=== PATIENT | female | born 1995 | race Hispanic/Latino ===

== ENCOUNTER 2019-12-02 17:24 | Emergency (ER) | payer OTHER, SELFPAY ==
[2019-12-04 17:06] LABS: SARS-CoV-2 MS2 Positive; SARS-CoV-2 N Gene Positive; SARS-CoV-2 S Gene Negative; SARS-CoV-2 orf1ab Negative
== END 2019-12-02 20:03 | disposition home or self-care (01) ==
LOC: ERS 17:24
DX: R50.9 Fever, unspecified (principal); Z20.828 Contact with and (suspected) exposure to other viral communicable diseases
CPT/HCPCS: 87635; 99283; U0003

== ENCOUNTER 2020-04-13 07:34 | Outpatient (CLI) | payer BC ==
--- NOTE | 2020-04-13 08:22 | ULT ---
TRANSABDOMINAL AND TRANSVAGINAL PELVIC ULTRASOUND: INDICATION: History of abnormal uterine bleeding in a 25-year-old female. COMPARISON: None. TECHNIQUE: Olivares scale, color Doppler, with spectral Doppler images were obtained of the pelvis via a transabdomi nal and transvaginal approach. FINDINGS: The uterus measures 7.6 x 5.2 x 4.4 cm for a total uterine volume of 91 cc. The endometrial stripe m easured 5 mm, which is within normal limits for a premenopausal female. The right ovary measured 3.1 x 2.9 x 2.8 cm. The left ovary measured 3.6 x 2.2 x 1.6 cm. There is n ormal flow to the ovaries. No free fluid is demonstrated. IMPRESSION: No acute sonographic abnormality within the pelvis. POS: OFF
== END 2020-04-13 07:35 | disposition home or self-care (01) ==
LOC: BICULT 07:34
PROVIDERS: ATTEND Physician Assistant
DX: N93.9 Abnormal uterine and vaginal bleeding, unspecified (principal)
CPT/HCPCS: 76856